=== PATIENT | male | born 1985 | race African-American/Black ===

== ENCOUNTER 2023-05-10 07:57 | Emergency (ER) | payer MEDICAID, SELFPAY ==
[2023-05-10 07:58] VITALS: BP 215/133; PULSE 90; RESP 16; TEMP 36.3; O2SAT 95; BMI 43.0
--- NOTE | 2023-05-10 08:11 | CT_ITS ---
STUDY: CT BRAIN WITHOUT CONTRAST REASON FOR EXAM: Male, 37 years old. HTN, headache RADIATION DOSAGE (If Supplied By Facility): CTDIvol = ( 44.99 ) mGy, DLP = ( 829.85 ) mGycm TECHNIQUE: Transaxial CT imaging of the brain was performed without administration of intravenous contrast material. Individualized dose optimization techniques were used for this CT. COMPARISON: No relevant priors. FINDINGS: Normal soft tissue structures. Normal calvarium. Normal size ventricles and extra-axial spaces for the patient''s age. Normal white matter tracts of the cerebral hemispheres. Normal basal ganglia and thalami. Normal brainstem. Normal cerebellum. There is no intracranial hemorrhage. There are no findings of an acute ischemic infarction. Normal visualized paranasal sinuses. CT/Brain/Head without Contrast IMPRESSION: Normal unenhanced CT scan of the brain. Electronically Signed: Shyam Garcia MD at 9:18 EST ,
--- NOTE | 2023-05-10 08:14 | EDS_ITS ---
HPI History of Present Illness Chief Complaint: Hypertension Detail of Chief Complaint: High blood pressure Informant: patient Narrative Narrative: Patient presents to the emergency department with complaint of elevated blood pressure and feeling short of breath and headache. Patient states that he was in residential overnight after being pulled over for traffic stop. He had just bought a alcoholic beverage and had 1 sip he states when they were pulled over. He was released this morning. While in residential he was complaining of headache and shortness of breath. Patient had a difficult time concentrating since yesterday. He has been without his blood pressure medicine for about a week. He is from the [facility] but will be moving to [place]. He has no primary care physician. Patient has history of drug abuse but has been clean since January 2023. 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 PFSH PFSH Allergy/AdvReac Type Severity Reaction Status Date / Time No Known Allergies Allergy Verified 05/10/23 08:00 Social History Smoking Status: Current every day smoker tobacco type: e-cigarettes ROS ROS ED Review of Systems ROS Unobtainable: other Constitutional Constitutional ED: Reports lethargy; Denies chills, fever(s), sweats or weight loss Eyes Eyes: Denies blurry vision, change in vision or diplopia ENT ENT ED: Denies rhinorrhea or sore throat Cardiovascular Cardiovascular: Denies chest pain, orthopnea or racing heartbeat Respiratory/Chest Respiratory/Chest: Reports dyspnea and dyspnea on exertion; Denies cough, orthopnea or sputum Gastrointestinal Gastrointestinal: Denies abdominal pain, diarrhea, nausea or vomiting Genitourinary Genitourinary ED: Denies dysuria, hematuria or urinary frequency Musculoskeletal Musculoskeletal: Denies arthralgias, back pain, myalgias or neck pain Integumentary Denies abscess, Abrasions or rash Neurologic Neurologic: Reports headache(s); Denies weakness Psychiatric Psychiatric: Denies anxiety, depression or suicidal thoughts Endocrine Endocrinology: Denies polydipsia, polyphagia or polyuria Hematologic/Lymphatic Hematologic/Lymphatic: Denies easy bleeding, easy bruising or lymphadenopathy Allergic/Immunologic Allergic/Immunologic ED: Denies mouth swelling, tongue swelling or urticaria EXAM Physical Exam Const Vital Signs: 05/10/23 07:58 05/10/23 08:40 05/10/23 08:41 Temperature 97.3 F L Temperature Source Temporal Pulse Rate 90 94 Respiratory Rate 16 16 Respiratory Pattern Normal Blood Pressure 215/133 H 175/141 H Blood Pressure Mean 160 152 Pulse Ox 95 97 Oxygen Delivery Method Room Air 05/10/23 09:21 05/10/23 09:42 Temperature Temperature Source Pulse Rate 81 Respiratory Rate 16 Respiratory Pattern Blood Pressure 138/93 H 114/104 H Blood Pressure Mean 108 107 Pulse Ox 96 Oxygen Delivery Method Room Air Positive well nourished and well developed General Appearance ED: well developed and NAD HEENT Reports TM's clear and moist mucous membranes normocephalic and atraumatic; Negative for trauma or tenderness Tympanic Membrane ED: Yes TM's clear Eyes PERRL and EOMs intact bilaterally General Eye ED: Negative for pale conjunctiva or scleral icterus Neck no lymphadenopathy, supple and no JVD General: Negative for tenderness Chest Wall inspection of chest normal and palpation of chest normal Chest: Negative for tenderness Resp normal respiratory effort and clear to auscultation bilaterally Effort and Inspection: Negative for respiratory distress or pain with movement Auscultation: Negative for rhonchi, wheezes or diminished lung sounds Cardio regular rate, regular rhythm, S1 normal heart sound, S2 normal heart sound and no murmurs Peripheral Pulses: pulses 2+ throughout GI normal to inspection, nondistended, normoactive bowel sounds, soft to palpation, non-tender, non-distended and no masses Back/Spine no CVA tenderness and no thoracic nor lumbar tenderness Extremity normal to inspection General Extremety ED: Negative for edema General Extremity: Negative for edema Neuro oriented x3, CN's II-XII intact bilaterally, no sensory deficits noted and gait normal Sensorium / Orientation: awake, alert, oriented to person, oriented to place and oriented to time Motor Exam: strength 5/5 throughout and strength abnormal Psych mental status grossly normal Skin no rashes or lesions noted and no wounds MDM MDM MDM Narrative Medical decision making narrative: Patient presents with significant elevation in his blood pressure and complaint of headache and shortness of breath. An IV line was ordered. He was ordered his clonidine and losartan. EKG obtained on arrival showed a sinus rhythm with ventricular rate of [address] changes. CBC with differential showed a white count of 5.6 with hemoglobin 13.4 and platelet count of 216. Chemistries unremarkable. BUN 13 and creatinine 0.96. Toxicology screen was positive for cocaine and marijuana. Patient had a CT scan of the brain without contrast that was unremarkable. After treatment and blood pressure markedly normalized. Symptomatically he felt back to baseline and feels well. Patient tells me he has access to his blood pressure medications in his truck and [place]. He will not need prescriptions for his blood pressure medication. He is advised to discontinue his illicit drug use. He does admit THC use but did not think he had used any cocaine. Lab Data Attestation: I reviewed the patient's lab results. Labs: Laboratory Results - last 24 hr 05/10/23 05/10/23 08:25 09:02 WBC 5.6 RBC 4.57 L Hgb 13.4 Hct 40.7 MCV 89.1 MCH 29.3 MCHC 32.9 RDW Std Deviation 42.2 RDW Coeff of [place]chan 13.2 Plt Count 216 MPV 10.7 Immature Gran % (Auto) 0.200 Neut % (Auto) 54.8 Lymph % (Auto) 31.6 [place] % (Auto) 4.8 Eos % (Auto) 7.4 H Baso % (Auto) 1.2 H Absolute Neuts (auto) 3.1 Absolute Lymphs (auto) 1.78 Nucleated RBC % 0 Sodium 138 Potassium 3.7 Chloride 102 Carbon Dioxide 33.0 H Anion Gap 3 L BUN 13 Creatinine 0.96 Estim Creat Clear Calc 188.93 Est GFR (MDRD) Af Amer 114 Est GFR (MDRD) Non-Af 94 BUN/Creatinine Ratio 13.6 Glucose 154 H Calcium 9.4 Troponin I High Sens 16 Urine Opiates Screen NEGATIVE Urine Methadone Screen NEGATIVE Ur Barbiturates Screen NEGATIVE Ur Phencyclidine Scrn NEGATIVE Ur Amphetamines Screen NEGATIVE MDMA (Ecstasy) Screen NEGATIVE U Benzodiazepines Scrn NEGATIVE Urine Cocaine Screen POSITIVE H U Cannabinoids Screen POSITIVE H Ur Drug Screen Comment Radiography Diagnostic Testing: Clinical Impression(s) from Imaging Studies Brain CT 05/10/23 08:11 IMPRESSION: Normal unenhanced CT scan of the brain. Electronically Signed: Shyam Garcia MD at 9:18 EST , EKG Initial EKG: Attestation: I personally reviewed and interpreted this EKG as follows: Comments: Sinus rhythm with a rate of [address] changes Prior EKG tracings: not available for review Discharge Plan Triage Chief Complaint: Hypertension ED Provider: Wenceslao Hernadez Dx/Rx/DC Orders Clinical Impression: Illicit drug use, Hypertension Instructions: ED Drug Abuse, ED Hypertension, Established Primary Care Provider: Care Physician,No Primary Referrals: Care Physician,No Primary [Primary Care Provider] - Disposition Disposition: Home, Self Care Discharge Date/Time: 05/10/23 10:20
--- NOTE | 2023-05-10 08:15 | ED.RN ---
NO OLD EKG
--- OUTSIDE RECORDS SUMMARY | 2023-05-10 08:24 | XMS RPT_ITS | CCD ---
Author Name Unknown Address [address] [facility] [address] [place] [address] Organization [facility] Care Team Providers Care Leather Coverer Name Role Phone Physician, No Family Unavailable Unavailable Physician, No Family Unavailable Unavailable Chalino, Nelson Unavailable Unavailable Chalino, Nelson Unavailable Unavailable Unavailable Primary Care Provider IRENE Weeks Attending Unavailable Allergies Allergy Classification Reported Allergen(s) Allergy Type Date of Onset Reaction(s) Facility (2 sources) Penicillins; Translations: [PENICILLINS] Propensity to adverse reactions to drug (disorder) 7 [facility] Other [place] Repository (1 source) OTHER; Translations: [OTHER] Propensity to adverse reactions (disorder) 2 [facility] Repository Problems Problem Classification Problem Date Documented Da te Episodic/Chronic Essential hypertension (2 sources) Hypertensive disorder; Translations: [Essential (primary) hypertension] Onset: 04-30-2023 04-30-2023 Chronic Nonspecific chest pain (1 source) Chest pain, unspecified; Translations: [Chest pain, unspecified] Onset: 02-23-2018 Episodic Residual codes; unclassified (1 source) Procedure and treatment not carried out because of patient's decision for unspecified reasons; Translations: [Procedure and treatment not carried out because of patient's decision for unspecified reasons] Onset: 02-23-2018 Episodic Results Test Name Value Interpretation Reference Range Facil ity Vital Signs Date Time Vital Sign Value Performing Clinician Real davis 04-30-2023 16:01-0500 Diastolic blood pressure 132 mm[Hg] Irene Donnelly MD Work Phone: [facility] 04-30-2023 16:01-0500 Systolic blood pressure 175 mm[Hg] Irene Donnelly MD Work Phone: [facility] [place] 04-30-2023 15:50-0500 Body temperature 97 [degF] Irene Donnelly MD Work Phone: [employer] 04-30-2023 15:50-0500 Body weight 178.3 kg Irene Donnelly MD Work Phone: [facility] [place] 04-30-2023 15:50-0500 Heart rate 98 /min Irene Donnelly MD Work Phone: [facility] [place] 04-30-2023 15:50-0500 Respiratory rate 16 /min Irene Donnelly MD Work Phone: [facility] [place] 04-30-2023 15:50-0500 SaO2% (BldA) [Mass fraction] 94 % Irene Donnelly MD Work Phone: [facility] [place] Encounters Encounter Date Encounter Type Care Provider Facility Start: 04-30-2023 End: 04-30-2023 Emergency department patient visit IR[facility] Start: 04-30-2023 End: 04-30-2023 Emergency department patient visit Irene Donnelly MD Work Phone: [facility] ED Plan of Treatment Date Care Activity Detail Author Start: 05-14-2023 End: 05-14-2023 Patient encounter procedure 05/14/2023 10:20 AM EST Office Visit [facility] [address] [address] Eve Ramirez, EMELINA Duffy CNP [address] [address] Appt Reason: New Patient Request Appointment [facility] Payers Date Payer Category Payer Unknown [id number] [id number] 1985 Unknown [id number] Unknown [id number] Social History Date Type Detail Facility [facility] unknown [facility] Start: 1985 Sex Assigned At Not on file [facility] Gender identity Not on file [facility] Hospital Discharge instructions 04-30-2023 Discharge Instructions Note Date & Type Note Facility 04-30-2023 Hospital Discharg e instructions Keshawn Perez MD - 04/30/2023 4:43 PM EST You were seen in the emergency department for high blood pressure. Given that you are not having any symptoms, there is no indication to drop your blood pressure. There is a risk of precipitating a stroke if your blood pressure is lowered quickly. Continue taking your medications as prescribed. Take your medications at the same time every day. Clonidine specifically can cause rebound high blood pressure if not taken at the same time every day. Return to the emergency department if you are having any chest pain, shortness of breath, vision changes, headache, new weakness or numbness, or any other acute medical concern. documented in this encounter [facility] Evaluation note Note Date & Type Note Facility documented in this encounter [facility] Summary Purpose Family History No Family History Records FoundNo Family History Records FoundNo Family History Records Found Advance Directives No Advanced Directives Records FoundNo Advanced Directives Records FoundNo Advanced Directives Records Found Additional Source Comments (unrecognized sect ion and content) No Status Records FoundNo Status Records FoundNo Status Records Found INFORMATION SOURCE (unrecogn ized section and content) DATE CREATED AUTHOR AUTHOR'S ORGANIZ ATION 03/28/2018 [facility] DATE CREATED AUTHOR AUTHOR'S ORGANIZ ATION 05/01/2023 [facility] Reason for Visit (unrecogniz ed section and content) FOR RECORDS PERTAINING TO PATIENTS WHO ARE OR HAVE BEEN ENROLLED IN A CHEMICAL DEPENDENCY/SUBSTANCEABUSE PROGRAM, SOME INFORMATION MAY BE OMITTED. This clinical summary was aggregated from multiple sources. Caution should be exercised in using it in the provision of clinical care. This summary normalizes information from multiple sources, and as a consequence, information in this document may materially change the coding, format and clinical context of patient data. In addition, data may be omitted in some cases. CLINICAL DECISIONS SHOULD BE BASED ON THE PRIMARY CLINICAL RECORDS. [facility] [employer] [facility]. provides no warranty or guarantee of the accuracy or completeness of information in this document.
[2023-05-10] MEDS: Losartan Potassium 25 MG Tablet PO (08:33)
[2023-05-10] MEDS: cloNIDine HCl 0.2 MG Tablet 0.200000000000000011 MG PO (08:34)
[2023-05-10 08:39] LABS: Absolute Lymphocyte Count 1.78 X10^3/uL (0.83-4.51); Absolute Neutrophil Count 3.1 X10^3/uL (2.0-7.7); Basophil# 0.07 X10^3/uL; Basophil% 1.2 % (0-1); Eosinophil# 0.42 X10^3/uL; Eosinophils% 7.4 % (0-5); Hematocrit 40.7 % (40-54); Hemoglobin 13.4 g/dL (13.0-16.5); Lymphocyte # 1.78 X10^3/ul (0.83-4.51); Lymphocyte % 31.6 % (19-41); Mean Corp Hgb Conc 32.9 g/dL (32-36); Mean Corpuscular Hgb 29.3 pg (27.0-32.0); Mean Corpuscular Volume 89.1 fL (80-94); Mean Platelet Vol. 10.7 fl (6.2-12.0); Monocyte# 0.27 X10^3/uL; Monocyte% 4.8 % (0-10); NRBC Flagged by Analyzer 0 % (0-5); Neutrophil # 3.09 X10^3/uL (2.7-7.7); Neutrophil % 54.8 % (47-70); Platelet Count 216 K/mm3 (150-450); RBC Distribution Width CV 13.2 % (11.6-14.6); RBC Distribution Width SD 42.2 fl (35.1-43.9); Red Blood Count 4.57 M/mm3 (4.6-6.2); White Blood Count 5.6 K/mm3 (4.4-11.0)
[2023-05-10 08:40] VITALS: BP 175/141; PULSE 94; RESP 16; O2SAT 97
[2023-05-10 08:51] LABS: Anion Gap 3 (5-15); BUN 13 mg/dL (7-18); BUN/Creat Ratio 13.6 RATIO (10-20); Calcium,Total 9.4 mg/dL (8.5-10.1); Chloride 102 mmol/L (98-107); Creatinine, Serum 0.96 mg/dL (0.70-1.30); EST Glomerular Filtration Rate 94 mL/min (>60); Est Glom Filt Rate - Afr Amer 114 mL/min (>60); Estimated Creatinine Clearance 188.93 ml/min; Glucose 154 mg/dL (74-106); Potassium 3.7 mmol/L (3.5-5.1); Sodium Level 138 mmol/L (136-145); Troponin-I HS 16 pg/mL (3.0-78.0)
[2023-05-10 09:21] VITALS: BP 138/93; PULSE 81; RESP 16; O2SAT 96
[2023-05-10 09:27] LABS: Amphetamine Urine VISTA NEGATIVE (<1000 ng/mL); Barbiturate Urine VISTA NEGATIVE (< 200 ng/mL); Benzodiazepine Urine VISTA NEGATIVE (< 200 ng/mL); Cocaine Urine VISTA POSITIVE (< 300 ng/mL); Ecstacy Urine VISTA NEGATIVE (< 500 ng/mL); Methadone Urine VISTA NEGATIVE (< 300 ng/mL); PCP Urine VISTA NEGATIVE (< 25 ng/mL); THC Urine VISTA POSITIVE (< 50 ng/mL); Vista UDS pH Range 6
[2023-05-10 09:42] VITALS: BP 114/104
== END 2023-05-10 10:20 | disposition home or self-care (01) ==
PROVIDERS: Emergency Provider Emergency Medicine; Visit Provider Emergency Medicine
DX: F14.90 Cocaine use, unspecified, uncomplicated (principal); F12.90 Cannabis use, unspecified, uncomplicated; I10 Essential (primary) hypertension; F17.290 Nicotine dependence, other tobacco product, uncomplicated
CPT/HCPCS: 70450; 80048; 80307; 84484; 85025; 93005; 99284